=== PATIENT | male | born 1975 | race African-American/Black ===

== ENCOUNTER 2017-08-17 13:12 | Emergency (ER) | payer MEDICAID ==
[~2017-08-17] VITALS: Ht 175.3 cm; Wt 74.8 kg
[2017-08-17 13:21] VITALS: BP 112/64
[2017-08-17] MEDS ORDERED: Methocarbamol 750mg tab ORAL ONE (13:45)
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
[2017-08-17] MEDS ORDERED: ROBAXIN-750750 MG PO (15:22)
[2017-08-17] MEDS ORDERED: IBUPROFEN600 MG ORAL (15:22)
[2017-08-17 15:25] VITALS: BP 118/70
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
== END 2017-08-17 15:25 | disposition home or self-care (01) ==
LOC: EMR 13:40
DX: S39.012A Strain of muscle, fascia and tendon of lower back, initial encounter (principal); V43.52XA Car driver injured in collision with other type car in traffic accident, initial encounter; Y92.410 Unspecified street and highway as the place of occurrence of the external cause
CPT/HCPCS: 72131; 99284

== ENCOUNTER 2020-02-01 13:08 | Emergency (ER) | payer MEDICAID ==
[~2020-02-01] VITALS: Ht 175.3 cm; Wt 72.6 kg
[~2020-02-01 13:08] MED LIST: IBUPROFEN600 MG ORAL; ROBAXIN-750750 MG PO
--- NOTE | 2020-02-01 13:12 | NUR ---
not in wr when called
[2020-02-01 13:25] VITALS: BP 111/77
[2020-02-01] MEDS ORDERED: Dicyclomine 10mg Cap ORAL ONE (13:30)
--- NOTE | 2020-02-01 13:35 | NUR ---
ED Nurse Note: Pt ambulated to ED from home d/t diarrhea and stomach upset going on for few weeks now. Pt is AOx4, calm and cooperative, VSS, on RA, afebrile on triage. Pt denies coughing nor recent fever. Placed on bed and gown. will continue to monitor.
[2020-02-01 14:02] LABS: APPEARANCE,URINE CLEAR; BILIRUBIN, URINE NEGATIVE (NEGATIVE); GLUCOSE, URINE (UA) NEGATIVE (NEGATIVE); KETONES,URINE 1+ (NEGATIVE); LEUKOCYTE ESTERASE ,URINE 1+ (NEGATIVE); NITRITE,URINE NEGATIVE (NEGATIVE); PH,URINE 7 (4.5-8.0); PROTEIN,URINE 1+ (NEGATIVE); UROBILINOGEN,URINE 4 MG/DL (0.0-1.0)
[2020-02-01 14:03] LABS: BASOPHILS % (AUTO) 1.8 % (0.0-2.0); EOSINOPHILS % (AUTO) 0.5 % (0.0-3.0); HEMATOCRIT 46.9 % (42.0-52.0); HEMOGLOBIN 15.3 G/DL (14.2-18.0); MEAN CORPUSCULAR VOLUME 92 FL (80-99); MONOCYTES % (AUTO) 9.2 % (1.0-10.0); NEUTROPHILS % (AUTO) 40.5 % (45.0-75.0); PLATELET COUNT 261 K/UL (150-450); RED BLOOD COUNT 5.12 M/UL (4.70-6.10); RED CELL DISTRIBUTION WIDTH 11.8 % (11.6-14.8); WHITE BLOOD COUNT 7.8 K/UL (4.8-10.8)
[2020-02-01 14:07] LABS: COLOR,URINE YELLOW
[2020-02-01 14:19] LABS: ANION GAP 9 mmol/L (5-15); BLOOD UREA NITROGEN 15 mg/dL (7-18); CALCIUM 8.9 MG/DL (8.5-10.1); CARBON DIOXIDE 25 MMOL/L (21-32); CHLORIDE 106 MMOL/L (98-107); CREATININE 1.1 MG/DL (0.55-1.30); SODIUM 140 MMOL/L (136-145)
[2020-02-01 14:23] LABS: ALANINE AMINOTRANSFERASE 24 U/L (12-78); ALBUMIN 3.8 G/DL (3.4-5.0); ALBUMIN/GLOBULIN RATIO 0.9 (1.0-2.7); ALKALINE PHOSPHATASE 79 U/L (46-116); ASPARTATE AMINO TRANSFERASE 25 U/L (15-37); BILIRUBIN,TOTAL 0.3 MG/DL (0.2-1.0)
[2020-02-01] MEDS ORDERED: Omnipaque-300 100ml vial INJ PRN (15:00)
--- NOTE | 2020-02-01 15:28 | NUR ---
ED Nurse Note: pt returned from CT on stable condition.
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
--- NOTE | 2020-02-01 16:28 | Diagnostic Imaging Report ---
EXAM: CT Abdomen and Pelvis With Intravenous Contrast CLINICAL HISTORY: PAIN TECHNIQUE: Axial computed tomography images of the abdomen and pelvis with intravenous contrast. CTDI is 4.6 mGy and DLP is 241.1 mGy-cm. One or more of the following dose reduction techniques were used: automated exposure control, adjustment of the mA and/or kV according to patient size, use of iterative reconstruction technique. COMPARISON: No relevant prior studies available. FINDINGS: Lung bases: Mild air trapping in the lung bases ABDOMEN: Liver: Unremarkable. Gallbladder and bile ducts: No calcified stones. No ductal dilation. Pancreas: Unremarkable. Spleen: Unremarkable. Adrenals: Unremarkable. Kidneys and ureters: Left renal cyst. No hydronephrosis. Stomach and bowel: Colon is underdistended and not well assessed. Correlate clinically if there is any concern for colitis. Nonobstructive bowel gas pattern. PELVIS: Appendix: Appendix not visualized. Bladder: Unremarkable. Reproductive: Unremarkable. ABDOMEN and PELVIS: Intraperitoneal space: Unremarkable. Bones/joints: No acute fracture. Soft tissues: Metallic foreign body in the soft tissues of the right buttock. Vasculature: Unremarkable. No abdominal aortic aneurysm. Lymph nodes: No enlarged lymph nodes. IMPRESSION: 1. Appendix not visualized. 2. Colon is underdistended and not well assessed. Correlate clinically if there is any concern for colitis.
[2020-02-01] MEDS ORDERED: ZOFRAN4 M1 ORAL (16:32)
[2020-02-01] MEDS ORDERED: METRONIDAZOLE500 MG ORAL ×2 (16:32→18:27)
[2020-02-01] MEDS ORDERED: OMEPRAZOLE20 M3 ORAL (16:32)
[2020-02-01] MEDS ORDERED: DICYCLOMINE HCL10 MG ORAL (16:32)
[2020-02-01 16:44] VITALS: BP 111/77
--- NOTE | 2020-02-01 16:44 | NUR ---
ER DISCHARGE NOTE: Patient is cleared to be discharged per ERPA, pt is aox4, on room air, with stable vital signs. pt was given dc and prescription instructions, pt was able to verbalize understanding, pt id band and iv site removed without complications. pt is able to ambulate with steady gait. pt took all belongings.
== END 2020-02-01 16:44 | disposition home or self-care (01) ==
LOC: EMR 13:23
DX: A04.72 Enterocolitis due to Clostridium difficile, not specified as recurrent (principal)
CPT/HCPCS: 36415; 74177; 80053; 81003; 83690; 84484; 85025; 87324; 96361; 96374; 96375; J2405; J7030; Q9967; S0028; Z7502; 99284